=== PATIENT | male | born 1990 | race Hispanic/Latino ===

== ENCOUNTER 2019-11-09 09:25 | Inpatient (IN) | payer MEDICAID, OTHER, SELFPAY ==
--- NOTE | 2019-11-09 10:57 | RAD ---
EXAM: Single view of the chest HISTORY: Shortness of breath COMPARISON: None FINDINGS: Single view of the chest shows a normal sized cardiomediastinal silhouette. There is no maegan dence of consolidation, mass, or pleural effusion. The bones are unremarkable IMPRESSION: No evidence of acute cardiopulmonary disease
[2019-11-09] MEDS ORDERED: Insulin Regular 100 units/100 ml in NS IVPB SCH (11:00)
[2019-11-09] MEDS ORDERED: Ondansetron PF 4 MG/2 ML Vial ONE (11:15)
[2019-11-09] MEDS ORDERED: Insulin Regular 300 UNITS/3 ML VIAL ONE (11:15)
[2019-11-09 12:04] LABS: Bilirubin Negative (Negative); Blood, Urine 2+ (Negative); Clarity Clear (Clear); Glucose, Urine (Dipstick) Greater than 1000 mg/dL (Negative); Ketone, Urine 150 mg/dL (Negative); Leukocyte Negative Leu/uL (Negative); Nitrite Negative (Negative); Protein, Urine (Dipstick) 50 mg/dL (Neg-Trace); RBC/HPF 0-3 HPF (0-3); Specific Gravity, Urine 1.017 (1.002-1.036); Squamous Epithelial 0-3 HPF (0-3); Urobilinogen Normal mg/dL (Less than 2); WBC/HPF 0-3 HPF (0-3); pH, Urine 5.5 (5.0-9.0)
[2019-11-09 12:05] LABS: Bacteria/HPF 1+ HPF (None Seen)
[2019-11-09 12:13] LABS: ALT (SGPT) 90 U/L (8-55); AST (SGOT) 29 U/L (5-34); Albumin 4.6 g/dL (3.5-5.0); Alkaline Phosphatase 187 U/L (40-110); BUN (Urea Nitrogen) 22 mg/dL (8.9-20.6); Bilirubin, Total 0.7 mg/dL (0.2-1.2); Calc. Creatinine Clearance 0 mL/min (70-130); Calcium 9.3 mg/dL (7.8-10.44); Carbon Dioxide Less than 8 mmol/L (22-29); Chloride 97 mmol/L (98-107); Estimated GFR-MDRD 52; Globulin 3.3 g/dL (2.4-3.5); Glucose 660 mg/dL (70-105); Magnesium 2.6 mg/dL (1.6-2.6); Potassium 3.7 mmol/L (3.5-5.1); Protein, Total 7.9 g/dL (6.0-8.3); Sodium 124 mmol/L (136-145)
[2019-11-09] MEDS ORDERED: Sodium Chloride 0.9% 1,000 ML IV PRN ×4 (12:16)
[2019-11-09] MEDS ORDERED: Dextrose 5 %-0.45 % NaCl 1,000 ML IV PRN (12:16)
[2019-11-09] MEDS ORDERED: Ondansetron ODT 4 MG TAB PO PRN (12:16)
[2019-11-09] MEDS ORDERED: NS 0.9% w/ 20 MEQ KCL 1,000 ML IV PRN ×2 (12:16)
[2019-11-09] MEDS ORDERED: Electrolyte Replacement Protoc 1 EACH EACH IVPB PRN (12:16)
[2019-11-09] MEDS ORDERED: Ondansetron PF 4 MG/2 ML Vial IVP PRN (12:16)
[2019-11-09 12:17] LABS: Troponin I 0.014 ng/mL (< 0.028)
--- NOTE | 2019-11-09 12:29 | PDOC.FPRHP ---
- History of Present Illness Chief Complaint: Difficulty breathing, N/V History of Present Illness: Mr. Jordan is a 28 yo male with no significant past medical history who presents to the ED with complaints of difficulty breathing and N/V. Pt reports that he has had polyuria and polydipsia for several weeks. He was recently diagnosed with DM on and was prescribed metformin. Last night he began experiencing N/V and reports ~15 episodes of vomiting, denies blood. This morning he began having difficulty breathing which prompted him to come to the hospital. Denies fever, cough, chest pain. ED Course: Labs obtained in ED. DKA protocol started. Given Insulin IV Push, Zofran, and fluids. Started on Insulin drip. - Allergies/Adverse Reactions Allergies Allergy/AdvReac Type Severity Reaction Status Date / Time No Known Allergies Allergy Unverified 11/09/19 11:00 - History PMHx: possible hx of H. Pylori PSHx: none FHx: DM in multiple family members, unsure if type I vs. Type II Social: denies tobacco, alcohol, drugs. with one child and another on the way. Manual labor job - Review of Systems General: reports: weight/appetite/sleep changes, fatigue. denies: fever/chills , night sweats Eyes: denies: eye pain, vision changes ENT: denies: nasal congestion, rhinorrhea Respiratory: reports: shortness of breath. denies: cough, congestion Cardiovascular: denies: chest pain, edema Gastrointestinal: reports: nausea, vomiting, abdominal pain. denies: diarrhea, constipation Genitourinary: reports: polyuria. denies: dysuria Skin: denies: rashes, lesions Musculoskeletal: denies: pain, swelling Neurological: reports: weakness. denies: syncope Psychological: denies: anxiety, depression - Vital signs BP: [135/85] HR: [97] RR: [28] Tmax: [97.8] Pox: [100]% on [RA] Wt: [78 kg] - Physical Exam Constitutional: awake, alert and oriented HEENT: normocephalic and atraumatic, PERRLA -HEENT: Dry mucous membranes Neck: supple, FROM Heart: normal S1/S2, no murmurs/rubs/gallops Lungs: CTAB, no rales/rhonchi, no wheezing -Lungs: Kussmaul breathing Abdomen: soft, non-tender, bowel sounds present Musculoskeletal: normal structure, normal tone, ROM grossly normal Neurological: no focal deficit, normal sensation Skin: no rash/lesions Heme/Lymphatic: no unusual bruising or bleeding, no purpura, no petechia Psychiatric: normal mood and affect, good judgment and insight FMR H&P: Results - Labs Result Diagrams: 11/09/19 10:08 11/09/19 15:40 Lab results: Sodium 124 mmol/L (136-145) L 11/09/19 10:08 Potassium 3.7 mmol/L (3.5-5.1) 11/09/19 10:08 Chloride 97 mmol/L (98-107) L 11/09/19 10:08 Carbon Dioxide Less than 8 mmol/L (22-29) L* 11/09/19 10:08 BUN 22 mg/dL (8.9-20.6) H 11/09/19 10:08 Creatinine 1.58 mg/dL (0.7-1.3) H 11/09/19 10:08 Glucose 660 mg/dL (70-105) H* 11/09/19 10:08 Lactic Acid 3.1 mmol/L (0.5-2.2) H 11/09/19 10:08 Calcium 9.3 mg/dL (7.8-10.44) 11/09/19 10:08 Total Bilirubin 0.7 mg/dL (0.2-1.2) 11/09/19 10:08 AST 29 U/L (5-34) 11/09/19 10:08 ALT 90 U/L (8-55) H 11/09/19 10:08 Alkaline Phosphatase 187 U/L (40-110) H 11/09/19 10:08 Serum Total Protein 7.9 g/dL (6.0-8.3) 11/09/19 10:08 Albumin 4.6 g/dL (3.5-5.0) 11/09/19 10:08 Urine Ketones 150 mg/dL (Negative) A 11/09/19 11:30 Urine Blood 2+ (Negative) A 11/09/19 11:30 Urine Nitrite Negative (Negative) 11/09/19 11:30 Ur Leukocyte Esterase Negative Prashant/uL (Negative) 11/09/19 11:30 Urine RBC 0-3 HPF (0-3) 11/09/19 11:30 Urine WBC 0-3 HPF (0-3) 11/09/19 11:30 Ur Squamous Epith Cells 0-3 HPF (0-3) 11/09/19 11:30 Urine Bacteria 1+ HPF (None Seen) A 11/09/19 11:30 - Radiology Interpretation Chest x-ray Status: image reviewed by me, report reviewed by me Additional comment: No evidence of acute cardiopulmonary disease FMR H&P: A/P - Problem List (1) DKA (diabetic ketoacidoses) Current Visit: Yes Status: Acute Priority: High Code(s): E11.10 - TYPE 2 DIABETES MELLITUS WITH KETOACIDOSIS WITHOUT COMA - Plan 28 yo male with no significant PMH admitted to IMCU for DKA. DKA -glucose: 660 upon arrival -anion gap > 19; unable to calculate actual anion gap as bicarb was just said to be <8 -DKA protocol in place -q4hr BMPx3 -q1hr glucose -NPO Hypokalemia -3.7 > 2.7 -given 40 mEq PO KCl -continue to monitor and follow DKA protocol Hyponatremia -due to hyperglycemia -corrected Na of 133 -will monitor Leukocytosis -WBC: 23.3 -likely 2/2 to DKA -will continue to monitor Dispo: admit to IMCU for DKA protocol Code: Full PPx: Lovenox Diet: NPO with ice chips and sips of water with meds Fluid: per protocol PCP: Delisa Lawrence FMR H&P: Upper Level - Plan Date/Time: 11/09/19 1229 IAdelfo DO, have evaluated this patient and agree with findings/plan as outlined by electrical intern resident. Pertinent changes/additions are listed here. This is a 28 yo male with no pmh who presents to the ER with a cc of SOB. He states this has been ongoing since a week ago. At that time he was seen by his PCP and was diagnosed with diabetes. He was started on metformin. Since then, he has been having worsening SOB, weakness, and some fatigue. He reports polydypsia, polyphagia, and polyuria. He feels like he cannot keep up with his fluids. He denies any fevers, chills, but does report some nausea and non- bloody vomiting. He reports a family history of DM. He denies current alcohol, tobacco, or drug use. In the ER, he has received 7.8 Units of IV insulin, 2L NS , Zofran 4mg, and was started on a 7.8unit/hr insulin drip Objective: Vitals: BP 135/85, HR 97, RR 28, Temp 97.8, SpO2 100 on ra, Wt. 78 kg General: Mild acute distress HEENT: dry mmm, AT/NC Cardio: tachycardic, regular rate, no murmurs Respiratory: CTAB, no adventitious sounds, Kussmal breathing Abdomen: Soft, non-tender, BS+ Extremities: No edema, pulses present A/P DKA with metabolic gap acidosis -Admit to IMCU -Initiate DKA protocol to replace fluids, potassium, and correct anion gap -S/P 7.8u regular insulin, started on insulin drip -S/P 2L NS in the ER -EKG shows no arrhythmia Hypokalemia -Replacing with PO and IV -Mag level normal -Will monitor Psuodhypernatremia -Corrects to 133 based on glucose Leukocytosis -WBC 23, likely 2/2 stress reaction, will monitor. No sign of infection or fever at this time. Code: Full Prophylaxis: lovenox Family: None at bedside Diet: NPO Fluids: Per DKA protocol Drips: Insulin drip, currently held due to potassium Disposition: DC in 2-3 days PCP: Delisa moser Addendum - Attending - Attending Attestation Date/Time: 11/09/19 1230 I personally evaluated the patient and discussed the management with Dr. Al/Tomas. I agree with the History, Examination, Assessment and Plan documented above with any addition or exceptions noted below. Patient here with worsening malaise associated with polyuria and polydipsia and weight loss. Has recent diagnosis of DM and was started on Metformin. Reports difficulty breathing. On exam, has obvious Kussmaul breathing. Labs show profound acidosis with ketone production and hyperglycemia. Patient will be admitted for DKA. Will check C peptide to clarify subtype. Insulin, IVF, Electrolyte replacement. Check ABG due to his increased respiratory drive to ensure he is not fatiguing. Admit to IMCU.
[2019-11-09] MEDS ORDERED: HUMULIN R 100 UNITS in Sodium Chloride 0.9% 100 ML IVPB SCH (12:30)
[2019-11-09] MEDS ORDERED: NS 0.9% w/ 20 MEQ KCL 1,000 ML IV SCH (12:30)
[2019-11-09 12:49] LABS: Hemoglobin 17.3 g/dL (14.0-18.0); Red Blood Cell (RBC) Count 6.23 mill/uL (4.70-6.10); White Blood Cell (WBC) Count 23.3 thou/uL (4.8-10.8)
[2019-11-09 12:50] LABS: Band 12 % (5-11); Lymphocytes 6 % (21-51); MDiff Complete? YES; Manual Diff?? YES; Mean Corpuscular HGB CONC 34.3 g/dL (32.0-36.0); Mean Corpuscular Hemoglobin 27.8 pg (27.0-31.0); Mean Corpuscular Volume 80.9 fL (78.0-98.0); Mean Platelet Volume 9.3 fL (7.4-10.4); Monocytes 7 % (0-10); Neutrophil 87 % (42-75); Platelet Count 413 thou/uL (130-400); RBC Distribution Width 13.7 % (11.5-14.5)
[2019-11-09 12:51] LABS: Platelet Morphology Comment Appears Adequate; RBC Morphology Normal
[2019-11-09 13:05] LABS: CK (CPK) 110 U/L (30-200)
[2019-11-09 13:25] LABS: BUN (Urea Nitrogen) 22 mg/dL (8.9-20.6); Calc. Creatinine Clearance 0 mL/min (70-130); Calcium 8.8 mg/dL (7.8-10.44); Chloride 106 mmol/L (98-107); Estimated GFR-MDRD 63; Glucose 448 mg/dL (70-105); Sodium 130 mmol/L (136-145)
[2019-11-09 13:29] LABS: Carbon Dioxide Less than 8 mmol/L (22-29); Potassium 2.7 mmol/L (3.5-5.1)
[2019-11-09] MEDS ORDERED: Potassium Chloride 20 MEQ TAB PO SCH ×3 (13:45→21:00)
[2019-11-09] MEDS ORDERED: Potassium Chloride 20 MEQ TAB ONE ×2 (14:03→17:16)
[2019-11-09 15:24] LABS: Lactic Acid 3.5 mmol/L (0.5-2.2)
[2019-11-09 16:14] LABS: BUN (Urea Nitrogen) 24 mg/dL (8.9-20.6); Calc. Creatinine Clearance 0 mL/min (70-130); Calcium 9.2 mg/dL (7.8-10.44); Chloride 107 mmol/L (98-107); Estimated GFR-MDRD 72; Glucose 209 mg/dL (70-105); Sodium 131 mmol/L (136-145)
[2019-11-09] MEDS ORDERED: Potassium Chloride 20 MEQ in Premix Bag 1 BAG IVPB SCH (16:15)
[2019-11-09] MEDS ORDERED: Potassium Chloride 20 MEQ/100 ML PREMIX BAG IVPB SCH (16:15)
[2019-11-09 16:16] LABS: Carbon Dioxide Less than 8 mmol/L (22-29); Potassium 1.9 mmol/L (3.5-5.1)
[2019-11-09 16:20] LABS: Actual Bicarbonate (HCO3a) 2.8 mEq/L (22-28); Analyzer IN Cardio ER; Base Excess (BEa) -27.8 mEq/L (-2.0 to +3.0); Calcium, Ionized (arterial) 1.48 mmol/L (1.12-1.30); Carboxyhemoglobin (COHb) 0.3 gm% (0.0-3.0); O2 Tension (PaO2), arterial 139.5 mmHg (80.0-100.0); Potassium - ABG Lab 1.65 mmol/L (3.70-5.30)
[2019-11-09 16:24] LABS: CO2 Tension 13.2 mmHg (35.0-45.0); Puncture Site RRA; pH, Arterial 6.95 (7.35-7.45)
[2019-11-09] MEDS ORDERED: Sodium Bicarb 50 MEQ/50 ML VIAL ONE (16:25)
[2019-11-09] MEDS ORDERED: Potassium Chloride 40 MEQ in Sodium Chloride 0.9% 250 ML 250 ML IVPB SCH (16:30)
[2019-11-09] MEDS ORDERED: NS 0.9% w/ 40 MEQ KCL 1,000 ML IV SCH (16:45)
--- NOTE | 2019-11-09 16:59 | RAD ---
RADIOGRAPH CHEST 1 VIEW: DATE: 11/09/2019 TIME: 4:50 PM HISTORY: Status post central line placement in 28-year-old male COMPARISON: 11/09/2019 9:54 AM FINDINGS: New central vascular catheter descending from right neck, with distal tip overlying SVC/right atrial junction. New ill-defined region of mild haziness at right lower lung zone. No cardiomegaly. The lateral costophrenic angles are sharp. No pneumothorax. IMPRESSION: 1) status post right internal jugular central venous catheter insertion into the superior vena cava/r ight atrial junction. 2) faint new mild pulmonary density at right lung base: Mild atelectasis versus viral pneumonia. 3) recommend follow-up
[2019-11-09] MEDS ORDERED: Piperacillin/Tazobactam 4.5 GM VIAL ONE (17:25)
[2019-11-09] MEDS ORDERED: Pantoprazole 40 MG VIAL IVP SCH (17:30)
[2019-11-09 17:55] LABS: BUN (Urea Nitrogen) 25 mg/dL (8.9-20.6); Calc. Creatinine Clearance 0 mL/min (70-130); Calcium 8.1 mg/dL (7.8-10.44); Chloride 113 mmol/L (98-107); Estimated GFR-MDRD 84; Glucose 150 mg/dL (70-105); Sodium 134 mmol/L (136-145)
[2019-11-09] MEDS ORDERED: Magnesium 2 GM/50 ML BAG (IN WATER) ONE (18:00)
[2019-11-09 18:01] LABS: Carbon Dioxide Less than 8 mmol/L (22-29); Potassium 1.9 mmol/L (3.5-5.1)
[2019-11-09 18:23] LABS: Actual Bicarbonate (HCO3a) 4.6 mEq/L (22-28); Analyzer IN Cardio ER; Base Excess (BEa) -25.7 mEq/L (-2.0 to +3.0); Calcium, Ionized (arterial) 1.35 mmol/L (1.12-1.30); Carboxyhemoglobin (COHb) 0.3 gm% (0.0-3.0); Hemoglobin (Hb) 14.4 g/dL (14.0-18.0); O2 Tension (PaO2), arterial 86.7 mmHg (80.0-100.0)
[2019-11-09 18:29] LABS: CO2 Tension 20.1 mmHg (35.0-45.0); pH, Arterial 6.98 (7.35-7.45)
[2019-11-09 18:30] LABS: ALV-art Gradient 37.905 (0-20); Puncture Site R RADIAL
[2019-11-09] MEDS ORDERED: Sodium Bicarbonate 150 MEQ in Sterile Water Injection 1,000 ML IV SCH (18:30)
--- NOTE | 2019-11-09 19:44 | PRG ---
DATE OF SERVICE: 11/09/2019 SUBJECTIVE: This is a 28-year-old male, who presented earlier today in DKA to the ER. He was initially started on DKA protocol including insulin, regular glucose checks, and BMPs. It was found that his potassium initially was 3.7 and subsequent potassium was 2.9 and 1.9. At this point, insulin drip was stopped and potassium supplementation, both IV and oral was initiated. During this time, an ABG was collected and pH was found to be 6.9, bicarb of 2.8, pCO2 of 13, O2 of 136. We elected to place a central line at this time for increased potassium supplementation via IV. At the time of this note, the patient received 80 mEq of oral potassium, 20 mEq of IV potassium and is receiving 20 mEq/hour of IV potassium in the central line. His chest x-ray reveals no pneumothorax, and there were bilateral breath sounds, status post central line. Currently, our main concern is his acidosis, followed closely by his hypokalemia. There is a repeat ABG coming back at this time to check the progress. The patient will be placed on a bicarb drip as well as receive 4.5 g of Zosyn for concern of bacterial infection. As of now, respiratory rate is 33 times a minute, pulse is 100 beats per minute, blood pressure is 103/65. He is still oriented, although lethargic. He awakes to voice. It will be crucial to start back his insulin as soon as we can to help correct the acidosis. Job ID: [id number] [facility]
[2019-11-09 19:46] LABS: ALT (SGPT) 50 U/L (8-55); AST (SGOT) 19 U/L (5-34); Albumin 2.8 g/dL (3.5-5.0); Alkaline Phosphatase 105 U/L (40-110); Anion Gap 15 mmol/L (10-20); BUN (Urea Nitrogen) 24 mg/dL (8.9-20.6); Bilirubin, Total 0.6 mg/dL (0.2-1.2); Calc. Creatinine Clearance 136 mL/min (70-130); Calcium 7.4 mg/dL (7.8-10.44); Carbon Dioxide 10 mmol/L (22-29); Chloride 110 mmol/L (98-107); Estimated GFR-MDRD Greater than 90; Globulin 1.7 g/dL (2.4-3.5); Glucose 158 mg/dL (70-105); Protein, Total 4.5 g/dL (6.0-8.3); Sodium 133 mmol/L (136-145)
[2019-11-09 19:49] LABS: Potassium 2.1 mmol/L (3.5-5.1)
[2019-11-09] MEDS: D5 1/2 NS w/20 mEq KCL 1,000 ML IV PRN ×2 (19:56→23:05)
[2019-11-09 21:02] LABS: Anion Gap 16 mmol/L (10-20); BUN (Urea Nitrogen) 23 mg/dL (8.9-20.6); Calc. Creatinine Clearance 122 mL/min (70-130); Calcium 7.6 mg/dL (7.8-10.44); Carbon Dioxide 10 mmol/L (22-29); Chloride 109 mmol/L (98-107); Estimated GFR-MDRD 83; Glucose 218 mg/dL (70-105); Sodium 133 mmol/L (136-145)
[2019-11-09 22:47] LABS: Actual Bicarbonate (HCO3a) 9.3 mEq/L (22-28); Base Excess (BEa) -18.1 mEq/L (-2.0 to +3.0); CO2 Tension 27.9 mmHg (35.0-45.0); Calcium, Ionized (arterial) 1.29 mmol/L (1.12-1.30); Carboxyhemoglobin (COHb) 0.3 gm% (0.0-3.0); O2 Tension (PaO2), arterial 76.3 mmHg (80.0-100.0); Potassium - ABG Lab 2.08 mmol/L (3.70-5.30)
[2019-11-09 22:49] LABS: pH, Arterial 7.14 (7.35-7.45)
[2019-11-09 22:50] LABS: ALV-art Gradient 88.465 (0-20); Puncture Site RR
--- NOTE | 2019-11-09 23:04 | PDOC.BPN ---
- Brief Progress Note I have been relatively continuously checking on Mr. Jordan after Dr. Marin was concerned by his respiratory status. In the ER I discussed with Dr. Simpson and he felt, similar to me, that we should avoid intubation if at all possible. The patient was easily rousable with mild c/o dyspnea. His lungs were clear. Concerning his DKA the insulin gtt was held and is receiving 20 meq/hr of KCl, which I am told is the maximum allowed here. I have added 40 mEq of PO as well as he was tolerating ice chips without difficulty. Upon arrival to the unit the insulin gtt had been restarted, and again it must be noted Dr. Cohen recommended continued treatment with the gtt despite the K. As his K is uptrending despite the insulin gtt and he has had no arrhythmias and has been improving on serial exam we will continue with frequent BMP's and blood gases, especially in light of what was felt to be impending respiratory failure. We have attempted to contact Dr. Cohen twice with no answer.
[2019-11-10 01:11] LABS: Anion Gap 13 mmol/L (10-20); BUN (Urea Nitrogen) 21 mg/dL (8.9-20.6); Calc. Creatinine Clearance 114 mL/min (70-130); Carbon Dioxide 12 mmol/L (22-29); Chloride 110 mmol/L (98-107); Estimated GFR-MDRD 77; Glucose 270 mg/dL (70-105); Sodium 133 mmol/L (136-145)
[2019-11-10 01:17] LABS: Potassium 1.7 mmol/L (3.5-5.1)
[2019-11-10] MEDS ORDERED: Potassium Chloride 20 MEQ in Premix Bag 1 BAG IVPB SCH ×2 (01:30→03:45)
[2019-11-10] MEDS ORDERED: Potassium Chloride 20 MEQ TAB PO SCH ×4 (01:30→23:15)
--- NOTE | 2019-11-10 02:13 | PDOC.BPN ---
- Brief Progress Note Patient continues to be checked on frequently due to respiratory status and low k. Concerning his DKA the insulin gtt has now been stopped - the anion gap is now 11. The patient continues to have low K, suspect from insulin. Will stop D5 and start LR. Will continue 20mEq IV K and give 40mEq oral as well. Will recheck BMP in 4 hrs. Will continue glucose checks q2hr and will space out to q4hr if possible. Will get an ABG if any worsening of his status. Attempting to contact Cohen earlier in the night with no answer. No arrhythmias have been noted. Patient improving on serial exams. Responds normally to questions. States breathing is improved from before. Still breathing at 27 RR. Will continue to monitor patient closely.
[2019-11-10] MEDS ORDERED: Lactated Ringer's 1,000 ML IV SCH ×4 (02:15→19:00)
[2019-11-10 03:15] LABS: Anion Gap 10 mmol/L (10-20); BUN (Urea Nitrogen) 21 mg/dL (8.9-20.6); Calc. Creatinine Clearance 113 mL/min (70-130); Carbon Dioxide 14 mmol/L (22-29); Chloride 110 mmol/L (98-107); Estimated GFR-MDRD 76; Glucose 289 mg/dL (70-105); Sodium 132 mmol/L (136-145)
[2019-11-10 03:18] LABS: Potassium 2.4 mmol/L (3.5-5.1)
[2019-11-10] MEDS: Lactated Ringer's 1,000 ML IV SCH ×2 (03:45→08:39)
--- NOTE | 2019-11-10 06:04 | PDOC.FM ---
- Subjective Subjective: Pt states he did fair overnight. He states his breathing is somewhat improved. Nursing reports NAEO. - Objective MAR Reviewed: Yes Vital Signs & Weight: Vital Signs (12 hours) Temp Pulse Resp BP Pulse Ox 11/10/19 03:30 100 11/10/19 02:00 98.0 F 11/10/19 00:26 100 11/09/19 20:00 100 11/09/19 19:00 96.1 F L 99 34 H 104/65 100 Weight Weight 83.9 kg Most Recent Monitor Data Heart Rate from ECG 104 NIBP 116/52 NIBP BP-Mean 73 Respiration from ECG 27 SpO2 98 I&O: 11/08/19 11/09/19 11/10/19 06:59 06:59 06:59 Intake Total 3388.8 Output Total 3425 Balance -36.2 Result Diagrams: 11/10/19 06:27 11/10/19 10:10 Phys Exam - Physical Examination Mild distress HEENT: moist MMs Respiratory: no wheezing, clear to auscultation bilateral Cardiovascular: no significant murmur Tachycardic, regular rate Gastrointestinal: soft, no distention, positive bowel sounds Musculoskeletal: no edema, pulses present Neurological: moves all 4 limbs Psychiatric: A&O x 3 Skin: cap refill <2 seconds Dx/Plan (1) DKA (diabetic ketoacidoses) Code(s): E11.10 - TYPE 2 DIABETES MELLITUS WITH KETOACIDOSIS WITHOUT COMA Status: Acute - Plan Plan: This is a 28 yo male with no significant pmh currently here for DKA DKA -Anion amber is closed 8, bicarb of 14, however repeat shows a potassium of 2.8, bicarb of 9, and anion gap of 13 -Pt is off of insulin drip, pending repeat ABG and potassium to start low dose of long acting insulin vs continuing drip -Still NPO -Pt will need finish photographer consult today Respiratory alkalosis 2/2 metabolic acidosis -Per Winter's formula, he is not completely compensated by respirations Hypokalemia, severe -Pt is receiving 20meq/hr of potassium IV, he has become nauseated with PO potassium -Last check was 2.4, pending ABG check -Will continue replacing, s/p 2g of mag in the ER -Central line placed Leukocytosis -Likely stress reaction, pending CBC, receiving zosyn -Pending COVID swab Pseudohyponatremia -Corrects to 132 Addendum - Attending - Attending Attestation Date/Time: 11/10/19 1202 I personally evaluated the patient and discussed the management with Dr. Marin. I agree with the History, Examination, Assessment and Plan documented above with any addition or exceptions noted below. Patient continues in DKA. Gap increased after bicarb drip stopped, anticipate due to continued acid production. Back on insulin drip, aggressive K replacement.
[2019-11-10] MEDS: Piperacillin/Tazobactam 3.375 GM in Sodium Chloride 0.9% 100 ML IVPB SCH ×4 (06:17→23:14)
[2019-11-10 06:42] LABS: Hemoglobin 14.3 g/dL (14.0-18.0); Mean Corpuscular Hemoglobin 28.5 pg (27.0-31.0); Mean Corpuscular Volume 79.4 fL (78.0-98.0); Mean Platelet Volume 8.8 fL (7.4-10.4); Platelet Count 235 thou/uL (130-400); RBC Distribution Width 13.6 % (11.5-14.5); Red Blood Cell (RBC) Count 5.02 mill/uL (4.70-6.10); White Blood Cell (WBC) Count 9.9 thou/uL (4.8-10.8)
[2019-11-10 06:58] LABS: Anion Gap 16 mmol/L (10-20); BUN (Urea Nitrogen) 21 mg/dL (8.9-20.6); Calc. Creatinine Clearance 107 mL/min (70-130); Calcium 8.4 mg/dL (7.8-10.44); Chloride 111 mmol/L (98-107); Estimated GFR-MDRD 71; Glucose 318 mg/dL (70-105); Sodium 133 mmol/L (136-145)
[2019-11-10 06:59] LABS: Magnesium 1.9 mg/dL (1.6-2.6)
[2019-11-10 07:10] LABS: Carbon Dioxide 9 mmol/L (22-29); Potassium 2.8 mmol/L (3.5-5.1)
[2019-11-10 07:11] LABS: Phosphorus Less than 1.0 mg/dL (2.3-4.7)
[2019-11-10 07:23] LABS: Band 30 % (5-11); Lymphocytes 7 % (21-51); MDiff Complete? YES; Monocytes 11 % (0-10); Neutrophil 52 % (42-75); Platelet Morphology Comment Appears Adequate; RBC Morphology Normal
[2019-11-10] MEDS ORDERED: Magnesium 2 GM/50 ML 2 GM in Premix Bag 1 BAG IVPB SCH (07:30)
[2019-11-10] MEDS: Pantoprazole 40 MG VIAL IVP SCH (07:33)
[2019-11-10] MEDS: Enoxaparin Sodium 40 MG/0.4 ML SYRINGE SC SCH (07:34)
--- NOTE | 2019-11-10 07:56 | OP ---
DATE OF PROCEDURE: 11/09/2019 PROCEDURE PERFORMED: Internal jugular central line placement. INDICATION: Hypokalemia. PROCEDURE MILANESE KNITTING MACHINE OPERATOR: Dr. Adelfo Marin. ATTENDING: Dr. Mika Nolan, in attendance. CONSENT: Procedure was performed emergently and permission was given verbally due to the emergent nature. PROCEDURE SUMMARY: [facility] insertion line practices were followed starting with washing my hands prior to starting sterile technique. Time-out was performed. My hands were washed immediately prior to the procedure. I wore a surgical cap, mask with eye protection, full gown, sterile gloves throughout the procedure. The patient was placed in Trendelenburg position. The right chest region was prepped using chlorhexidine scrub and draped in a sterile fashion using full drape and sterile probe cover employed. Medial and lateral heads of the sternocleidomastoid muscle were identified as was the carotid pulse. The internal jugular vein was identified using ultrasound. Anesthesia was achieved over the vein using 1% lidocaine. Using real-time out of plane guidance, the introducer needle was then inserted to the internal jugular vein under direct ultrasound visualization. Venous blood was withdrawn. The syringe was removed and guidewire was advanced into the introducer needle. The guidewire was visualized in the internal jugular vein by ultrasound. A small incision was made in the surface of skin with a scalpel and the introducer needle was exchanged for the dilator over the guidewire. After appropriate dilation was obtained, the dilator was exchanged over the wire for a tri-lumen central catheter. The wire was removed and the catheter was sutured in place at 15 cm. Sterile SorbaView shield was placed over the catheter at the insertion site. The patient tolerated the procedure without any hemodynamic compromise. At the time of procedure completion, all ports were aspirated and flushed properly. Postprocedure chest x-ray shows proper placement with no sign of pneumothorax. Estimated blood loss was 15 mL. Job ID: [id number] [facility]
[2019-11-10] MEDS ORDERED: Potassium Chloride 40 MEQ in Sodium Chloride 0.9% 250 ML 250 ML IVPB SCH (08:00)
[2019-11-10] MEDS ORDERED: HUMULIN R 100 UNITS in Sodium Chloride 0.9% 100 ML IVPB SCH ×2 (08:15→08:57)
[2019-11-10 08:19] LABS: Actual Bicarbonate (HCO3a) 8.4 mEq/L (22-28); Base Excess (BEa) -18.5 mEq/L (-2.0 to +3.0); Calcium, Ionized (arterial) 1.34 mmol/L (1.12-1.30); Carboxyhemoglobin (COHb) 0.7 gm% (0.0-3.0); O2 Tension (PaO2), arterial 82.8 mmHg (80.0-100.0); Potassium - ABG Lab 2.81 mmol/L (3.70-5.30)
[2019-11-10 08:20] LABS: ALV-art Gradient 87.215 (0-20); CO2 Tension 23.7 mmHg (35.0-45.0); Puncture Site RRA; pH, Arterial 7.17 (7.35-7.45)
[2019-11-10] MEDS ORDERED: Sodium Bicarb 50 MEQ/50 ML Abboject 8.4% SYRINGE IVP SCH (09:15)
--- NOTE | 2019-11-10 09:50 | CON ---
DATE OF CONSULTATION: HISTORY OF PRESENT ILLNESS: Fred Jordan is a 28-year-old gentleman, admitted to the hospital, type 1 diabetes and severe metabolic acidosis, hypokalemia, electrolyte imbalance. The diagnosis of diabetes was recently made. Apparently, he was started on metformin, presented with shortness of breath, polyuria, and polydipsia. PAST MEDICAL HISTORY: Diabetes and hypertension. PREVIOUS SURGERIES: Apparently none. CHRONIC MEDICATION: Recently started on metformin. ALLERGIES: NONE. REVIEW OF SYSTEMS: Otherwise, unremarkable except recent cough. PHYSICAL EXAMINATION: VITAL SIGNS: Pulse 97, blood pressure 130/80, saturations 100%, respirations 32. CHEST: No wheezing. No crackles. CARDIAC: Normal S1, S2. No gallops. ABDOMEN: Soft. LABORATORY DATA: White count 9000, 52 segs, 30 bands. X-ray shows a right-sided infiltrate. PO2 of 82, pCO2 of 23, pH 7.17, on 2 L. His potassium which was 1.7, now is 2.8. His anion gap is still 16. His bicarb is still 9. Glucose 318. His phosphorus is 1. His magnesium is 1.9. ASSESSMENT: 1. DKA, ongoing metabolic acidosis. 2. Hypokalemia. 3. Right lung pneumonia. PLAN: Agree with antibiotics. Continue aggressive fluid replacement. 1 amp of bicarb. We will follow in the ICU. He is probably going to require Levemir post discharge. Consultation note 70 minutes, 50% direct patient care. Job ID: [id number]
[2019-11-10] MEDS: Acetaminophen 325 MG TAB PO PRN (09:56)
[2019-11-10] MEDS: K-Phos Neutral 250 MG TAB PO SCH ×2 (09:57→16:11)
[2019-11-10] MEDS ORDERED: Potassium Chloride 40 MEQ in Premix Bag 1 BAG IVPB SCH (10:00)
[2019-11-10 11:06] LABS: Anion Gap 18 mmol/L (10-20); BUN (Urea Nitrogen) 21 mg/dL (8.9-20.6); Calc. Creatinine Clearance 79 mL/min (70-130); Chloride 112 mmol/L (98-107); Sodium 135 mmol/L (136-145)
[2019-11-10 11:07] LABS: Calcium 8.3 mg/dL (7.8-10.44); Estimated GFR-MDRD 65; Glucose 349 mg/dL (70-105)
[2019-11-10 11:20] LABS: Carbon Dioxide 8 mmol/L (22-29); Potassium 2.9 mmol/L (3.5-5.1)
[2019-11-10 13:08] LABS: Anion Gap 15 mmol/L (10-20); BUN (Urea Nitrogen) 19 mg/dL (8.9-20.6); Calc. Creatinine Clearance 79 mL/min (70-130); Calcium 8.2 mg/dL (7.8-10.44); Carbon Dioxide 12 mmol/L (22-29); Chloride 117 mmol/L (98-107); Estimated GFR-MDRD 64; Glucose 284 mg/dL (70-105); Sodium 142 mmol/L (136-145)
[2019-11-10 13:33] LABS: Potassium 2.3 mmol/L (3.5-5.1)
[2019-11-10] MEDS: Potassium Chloride 40 MEQ in Premix Bag 1 BAG IVPB SCH ×3 (14:14→17:11)
[2019-11-10 14:30] LABS: SARS-CoV-2 MS2 Positive; SARS-CoV-2 N Gene Negative; SARS-CoV-2 S Gene Negative; SARS-CoV-2 by NAA Not Detected (NotDetected); SARS-CoV-2 orf1ab Negative
[2019-11-10 15:04] LABS: Anion Gap 14 mmol/L (10-20); BUN (Urea Nitrogen) 19 mg/dL (8.9-20.6); Calc. Creatinine Clearance 83 mL/min (70-130); Calcium 8.6 mg/dL (7.8-10.44); Carbon Dioxide 13 mmol/L (22-29); Chloride 118 mmol/L (98-107); Estimated GFR-MDRD 68; Glucose 187 mg/dL (70-105); Sodium 143 mmol/L (136-145)
[2019-11-10 15:09] LABS: Potassium 1.9 mmol/L (3.5-5.1)
[2019-11-10 16:16] LABS: Anion Gap 11 mmol/L (10-20); BUN (Urea Nitrogen) 17 mg/dL (8.9-20.6); Calc. Creatinine Clearance 87 mL/min (70-130); Calcium 8.4 mg/dL (7.8-10.44); Carbon Dioxide 17 mmol/L (22-29); Chloride 118 mmol/L (98-107); Estimated GFR-MDRD 72; Glucose 131 mg/dL (70-105); Sodium 144 mmol/L (136-145)
[2019-11-10 16:34] LABS: Phosphorus Less than 1.0 mg/dL (2.3-4.7)
[2019-11-10] MEDS: Dextrose 5% in Water 1,000 ML IV SCH ×2 (17:20→23:16)
[2019-11-10] MEDS ORDERED: Potassium Phosphate 30 MMOL in Sodium Chloride 0.9% 250 ML 250 ML IVPB SCH (17:30)
[2019-11-10 18:55] LABS: Anion Gap 17 mmol/L (10-20); BUN (Urea Nitrogen) 16 mg/dL (8.9-20.6); Calc. Creatinine Clearance 87 mL/min (70-130); Calcium 8.1 mg/dL (7.8-10.44); Carbon Dioxide 15 mmol/L (22-29); Chloride 117 mmol/L (98-107); Estimated GFR-MDRD 72; Glucose 219 mg/dL (70-105); Sodium 146 mmol/L (136-145)
[2019-11-10 19:00] LABS: Potassium 2.7 mmol/L (3.5-5.1)
[2019-11-10 20:58] LABS: Anion Gap 15 mmol/L (10-20); BUN (Urea Nitrogen) 16 mg/dL (8.9-20.6); Calc. Creatinine Clearance 88 mL/min (70-130); Calcium 7.9 mg/dL (7.8-10.44); Carbon Dioxide 17 mmol/L (22-29); Chloride 116 mmol/L (98-107); Estimated GFR-MDRD 73; Glucose 283 mg/dL (70-105); Sodium 146 mmol/L (136-145)
[2019-11-10 21:04] LABS: Potassium 2.4 mmol/L (3.5-5.1)
[2019-11-10] MEDS ORDERED: Potassium Phosphate 30 MMOL in Sodium Chloride 0.9% 500 ML IVPB SCH (22:00)
[2019-11-10 22:25] LABS: Magnesium 2.3 mg/dL (1.6-2.6); Phosphorus 1.7 mg/dL (2.3-4.7)
[2019-11-10] MEDS ORDERED: PHOS-NAK 1 PKT PACK PO SCH (22:45)
[2019-11-11 00:32] LABS: Anion Gap 11 mmol/L (10-20); BUN (Urea Nitrogen) 14 mg/dL (8.9-20.6); Calc. Creatinine Clearance 93 mL/min (70-130); Carbon Dioxide 21 mmol/L (22-29); Chloride 116 mmol/L (98-107); Estimated GFR-MDRD 78; Glucose 265 mg/dL (70-105); Sodium 146 mmol/L (136-145)
[2019-11-11 00:40] LABS: Potassium 2.1 mmol/L (3.5-5.1)
[2019-11-11] MEDS ORDERED: Lactated Ringer's 1,000 ML IV SCH (00:56)
[2019-11-11] MEDS ORDERED: Potassium Chloride 20 MEQ TAB PO SCH (01:00)
[2019-11-11] MEDS ORDERED: Potassium Chloride 10 MEQ in Premix Bag 1 BAG IVPB SCH (01:15)
[2019-11-11] MEDS ORDERED: Potassium Phosphate 30 MMOL in Sodium Chloride 0.9% 500 ML IVPB SCH (01:17)
[2019-11-11] MEDS ORDERED: Potassium Chloride 60 MEQ in Sodium Chloride 0.9% 250 ML 250 ML IVPB SCH (02:00)
[2019-11-11] MEDS ORDERED: NPH, Human Insulin Isophane 300 UNIT/3 ML VIAL SC SCH ×4 (02:00→21:00)
[2019-11-11] MEDS ORDERED: Dextrose 5% in Water 1,000 ML IV SCH (02:45)
[2019-11-11 04:41] LABS: Anion Gap 13 mmol/L (10-20); BUN (Urea Nitrogen) 14 mg/dL (8.9-20.6); Calc. Creatinine Clearance 98 mL/min (70-130); Carbon Dioxide 21 mmol/L (22-29); Chloride 118 mmol/L (98-107); Estimated GFR-MDRD 83; Glucose 188 mg/dL (70-105); Magnesium 2.1 mg/dL (1.6-2.6); Sodium 149 mmol/L (136-145)
[2019-11-11 04:44] LABS: Potassium 2.6 mmol/L (3.5-5.1)
[2019-11-11] MEDS ORDERED: POTASSIUM CHLORIDE IV SCH (05:00)
[2019-11-11] MEDS ORDERED: LACTATED RINGER S IV SCH (05:00)
[2019-11-11] MEDS: Piperacillin/Tazobactam 3.375 GM in Sodium Chloride 0.9% 100 ML IVPB SCH ×3 (05:32→17:13)
--- NOTE | 2019-11-11 05:39 | PDOC.FM ---
- Subjective Subjective: Nursing states pt did well overnight although he did not sleep much. She states his potassium has been all over the place. - Objective MAR Reviewed: Yes Vital Signs & Weight: Vital Signs (12 hours) Temp Pulse Ox 11/11/19 04:00 98.8 F 11/11/19 00:00 98.6 F 11/10/19 20:00 98.3 F 11/10/19 18:59 100 Weight Admit Weight 83.9 kg Weight 67.3 kg Most Recent Monitor Data Heart Rate from ECG 108 NIBP 111/70 NIBP BP-Mean 83 Respiration from ECG 21 SpO2 99 I&O: 11/09/19 11/10/19 11/11/19 06:59 06:59 06:59 Intake Total 3388.8 7338.1 Output Total 3425 65119 Balance -36.2 -3171.9 Result Diagrams: 11/10/19 06:27 11/11/19 08:03 Phys Exam - Physical Examination Constitutional: NAD Sleeping HEENT: moist MMs Respiratory: no wheezing, clear to auscultation bilateral Cardiovascular: RRR, no significant murmur Gastrointestinal: soft, non-tender, no distention, positive bowel sounds Musculoskeletal: pulses present Neurological: normal sensation, moves all 4 limbs Psychiatric: A&O x 3 Skin: cap refill <2 seconds Dx/Plan (1) DKA (diabetic ketoacidoses) Code(s): E11.10 - TYPE 2 DIABETES MELLITUS WITH KETOACIDOSIS WITHOUT COMA Status: Acute - Plan Plan: This is a 28 yo male with no significant pmh currently here for DKA DKA -Anion amber is closed at 10 -Will continue fluids IV and PO -Will transition to NPH insulin -Will continue monitoring blood glucose today, has been stable so far Respiratory alkalosis 2/2 metabolic acidosis, improving -Per Winter's formula, he is not completely compensated by respirations Hypokalemia, severe -Continuing to replace with IV and PO potassium -This AM he is at 2.6, will monitor closely to stop aggressive replacement when we reach 3.5 -Pending mag and phosphate levels Leukocytosis, resolved -Likely stress reaction -Covid negative Hypernatremia, likely 2/2 2.6L free water deficit -Will work to correct today with oral hydration Addendum - Attending - Attending Attestation Date/Time: 11/11/19 9944 I personally evaluated the patient and discussed the management with Dr. Marin. I agree with the History, Examination, Assessment and Plan documented above with any addition or exceptions noted below. Patient feeling improved. Gap closed and Bicarb appropriate. Starting on long acting insulin. Recheck potassium. Monitor blood glucose closely.
[2019-11-11 06:21] LABS: Phosphorus 2.2 mg/dL (2.3-4.7)
[2019-11-11] MEDS: Acetaminophen 325 MG TAB PO PRN ×2 (07:44→16:14)
[2019-11-11] MEDS: Potassium Chloride 20 MEQ TAB PO SCH ×2 (07:44→16:14)
[2019-11-11] MEDS: K-Phos Neutral 250 MG TAB PO SCH ×2 (07:44→16:15)
[2019-11-11] MEDS: Pantoprazole 40 MG VIAL IVP SCH (07:45)
[2019-11-11] MEDS: Enoxaparin Sodium 40 MG/0.4 ML SYRINGE SC SCH (07:45)
[2019-11-11 08:45] LABS: Anion Gap 15 mmol/L (10-20); BUN (Urea Nitrogen) 12 mg/dL (8.9-20.6); Calc. Creatinine Clearance 119 mL/min (70-130); Calcium 8.2 mg/dL (7.8-10.44); Carbon Dioxide 19 mmol/L (22-29); Chloride 119 mmol/L (98-107); Estimated GFR-MDRD 84; Glucose 186 mg/dL (70-105); Potassium 4.4 mmol/L (3.5-5.1); Sodium 149 mmol/L (136-145)
[2019-11-11] MEDS ORDERED: Dextrose 50% Abboject 50 ML SYRINGE SLOW IVP PRN (09:13)
[2019-11-11] MEDS ORDERED: HumaLOG 300 UNITS/3 ML VIAL SC PRN (09:13)
[2019-11-11] MEDS: HumaLOG 300 UNITS/3 ML VIAL SC PRN ×5 (09:30→21:01)
[2019-11-11] MEDS: Sodium Chloride 0.45% 1,000 ML IV SCH ×4 (09:34→23:40)
--- NOTE | 2019-11-11 09:51 | PRG ---
DATE OF SERVICE: 11/11/2019 SUBJECTIVE: Fred Jordan is a 28-year-old [place] gentleman, awake, alert, and responsive. OBJECTIVE: VITAL SIGNS: Temperature 98, blood pressure 107/73, pulse 111, saturations 98% on room air. GENERAL: He is awake, alert, and responsive. Denies any pain or discomfort. His I's and O's have been 7718 in and 10,000 out. Large urine output. LABORATORY DATA: His bicarb is 19, now improved. Glucose 186. ASSESSMENT: Diabetic ketoacidosis, it actually imbalanced, much improved. He needs to be started on long-acting insulin. Continue slow hydration. Pulmonary/Critical Care will follow at a distance. Job ID: [id number]
[2019-11-11 11:55] LABS: Anion Gap 15 mmol/L (10-20); BUN (Urea Nitrogen) 12 mg/dL (8.9-20.6); Calc. Creatinine Clearance 117 mL/min (70-130); Calcium 8.1 mg/dL (7.8-10.44); Carbon Dioxide 21 mmol/L (22-29); Chloride 118 mmol/L (98-107); Estimated GFR-MDRD 82; Glucose 220 mg/dL (70-105); Potassium 4.9 mmol/L (3.5-5.1); Sodium 149 mmol/L (136-145)
[2019-11-11 12:45] LABS: Hemoglobin A1c 11.2 % (4.0-6.0)
[2019-11-11 15:55] LABS: Anion Gap 14 mmol/L (10-20); BUN (Urea Nitrogen) 11 mg/dL (8.9-20.6); Calc. Creatinine Clearance 114 mL/min (70-130); Calcium 8.5 mg/dL (7.8-10.44); Carbon Dioxide 22 mmol/L (22-29); Chloride 114 mmol/L (98-107); Estimated GFR-MDRD 80; Glucose 191 mg/dL (70-105); Potassium 3.8 mmol/L (3.5-5.1); Sodium 146 mmol/L (136-145)
[2019-11-12] MEDS: Piperacillin/Tazobactam 3.375 GM in Sodium Chloride 0.9% 100 ML IVPB SCH ×2 (00:02→05:15)
[2019-11-12] MEDS: Sodium Chloride 0.45% 1,000 ML IV SCH (05:16)
[2019-11-12] MEDS: HumaLOG 300 UNITS/3 ML VIAL SC PRN ×4 (05:17→20:32)
[2019-11-12 05:52] LABS: Anion Gap 12 mmol/L (10-20); BUN (Urea Nitrogen) 9 mg/dL (8.9-20.6); Calc. Creatinine Clearance 133 mL/min (70-130); Calcium 8.2 mg/dL (7.8-10.44); Carbon Dioxide 24 mmol/L (22-29); Chloride 106 mmol/L (98-107); Estimated GFR-MDRD Greater than 90; Glucose 251 mg/dL (70-105); Potassium 4.2 mmol/L (3.5-5.1); Sodium 138 mmol/L (136-145)
[2019-11-12 07:39] LABS: Magnesium 1.6 mg/dL (1.6-2.6); Phosphorus 2.9 mg/dL (2.3-4.7)
[2019-11-12] MEDS ORDERED: Magnesium 2 GM/50 ML 2 GM in Premix Bag 1 BAG IVPB SCH (08:00)
[2019-11-12] MEDS ORDERED: HumuLIN 70/30 (300 UNITS/3 ML VIAL) SC SCH (08:00)
--- NOTE | 2019-11-12 08:33 | PDOC.FM ---
- Subjective Subjective: Pt reports he is significantly better this AM. He states his breathing is improved and he denies any pain this AM - Objective MAR Reviewed: Yes Vital Signs & Weight: Vital Signs (12 hours) Temp Pulse Resp BP Pulse Ox 11/12/19 04:36 98.2 F 88 17 117/76 99 11/12/19 00:37 98.3 F 96 17 120/68 98 Weight Admit Weight 83.9 kg Weight 82.826 kg Most Recent Monitor Data Heart Rate from ECG 94 NIBP 137/82 NIBP BP-Mean 100 Respiration from ECG 16 SpO2 100 I&O: 11/11/19 11/12/19 11/13/19 06:59 06:59 06:59 Intake Total 7710.4 29065 Output Total 49359 4550 Balance -3279.6 9254 Result Diagrams: 11/10/19 06:27 11/12/19 04:59 Phys Exam - Physical Examination Constitutional: NAD HEENT: moist MMs Neck: no JVD Respiratory: no wheezing, clear to auscultation bilateral Nonlabored Cardiovascular: RRR, no significant murmur Gastrointestinal: soft, non-tender, no distention, positive bowel sounds Musculoskeletal: no edema, pulses present Neurological: moves all 4 limbs Psychiatric: A&O x 3 Skin: normal turgor, cap refill <2 seconds Dx/Plan (1) DKA (diabetic ketoacidoses) Code(s): E11.10 - TYPE 2 DIABETES MELLITUS WITH KETOACIDOSIS WITHOUT COMA Status: Acute - Plan Plan: This is a 28 yo male with no significant pmh currently here for DKA DKA, resolved DM1 -Discussed extensively the importance of taking insulin. He is self insured and we discussed the use of 70/30 for his diabetes. There are safety net maker, CM, and financial consults for this patient. I encouraged him to talk with the nurses in regards to giving himself insulin and checking his blood glucose. Respiratory alkalosis 2/2 metabolic acidosis, Resolved Hypokalemia, resolved -Continue supplementation during this hospital stay Leukocytosis, resolved -Stopping abx today Hypernatremia, resolved Hypophosphatemia, resolved Hypomagnesemia, resolved Addendum - Attending - Attending Attestation Date/Time: 11/12/19 1216 I personally evaluated the patient and discussed the management with Dr. Tomas. I agree with the History, Examination, Assessment and Plan documented above with any addition or exceptions noted below. Patient admitted for severe DKA and acidemia and profound hypokalemia in the setting of presumed new onset DM1. C-peptide low normal, islet cell antibodies pending. He is now doing well on 70/30 due to funding status. Hopeful discharge tomorrow after DM teaching and optimization of glucose control.
[2019-11-12] MEDS: Potassium Chloride 20 MEQ TAB PO SCH ×2 (08:40→17:49)
[2019-11-12] MEDS: K-Phos Neutral 250 MG TAB PO SCH (08:40)
[2019-11-12] MEDS: Enoxaparin Sodium 40 MG/0.4 ML SYRINGE SC SCH (08:46)
[2019-11-12 14:31] VITALS: BMI 30.4
[2019-11-12] MEDS: HumuLIN 70/30 (300 UNITS/3 ML VIAL) SC SCH (17:49)
--- NOTE | 2019-11-13 05:33 | PDOC.FM ---
- Subjective Subjective: Pt reports that he is feeling much better this morning. Expresses desire to go home and understanding of DM education. - Objective Vital Signs & Weight: Vital Signs (12 hours) Temp Pulse Resp BP Pulse Ox 11/12/19 19:55 98.4 F 93 17 114/73 97 11/12/19 19:50 97 Weight Admit Weight 83.9 kg Weight 82.82 kg Most Recent Monitor Data Heart Rate from ECG 94 NIBP 137/82 NIBP BP-Mean 100 Respiration from ECG 16 SpO2 100 I&O: 11/11/19 11/12/19 11/13/19 06:59 06:59 06:59 Intake Total 7710.4 62009 720 Output Total 25151 4550 Balance -3279.6 9254 720 Result Diagrams: 11/10/19 06:27 11/13/19 06:35 Phys Exam - Physical Examination Constitutional: NAD HEENT: PERRLA, moist MMs Neck: full ROM Respiratory: no wheezing, no rales, no rhonchi, clear to auscultation bilateral Cardiovascular: RRR, no significant murmur Gastrointestinal: soft, non-tender, no distention, positive bowel sounds Musculoskeletal: no edema Psychiatric: normal affect, A&O x 3 Skin: no rash Dx/Plan (1) DKA (diabetic ketoacidoses) Code(s): E11.10 - TYPE 2 DIABETES MELLITUS WITH KETOACIDOSIS WITHOUT COMA Status: Acute - Plan Plan: DKA -resolved DM1 -pt has received DM education -[facility] has supplied him with his glucometer kit, lancets, strips, a bottle of insulin 70/30, and syringe -continue to monitor glucose outpatient Respiratory alkalosis 2/2 metabolic acidosis -Resolved Hypokalemia, resolved -will continue supplementing until discharge; BMP pending Leukocytosis -resolved -antibiotics stopped on 11/11 Hypernatremia -resolved Hypophosphatemia -resolved Hypomagnesemia -resolved Dispo: Likely discharge home today; encouraged to establish care with [facility] Addendum - Attending - Attending Attestation Date/Time: 11/13/192103 I personally evaluated the patient and discussed the management with Dr. Al. I agree with the History, Examination, Assessment and Plan documented above with any addition or exceptions noted below. New onset T1DM with DKA- DKA resolved and now ready for d/c. Will need close o/ p followup for insulin titration.
[2019-11-13] MEDS: HumaLOG 300 UNITS/3 ML VIAL SC PRN ×2 (06:38→12:26)
[2019-11-13 07:25] LABS: Anion Gap 13 mmol/L (10-20); BUN (Urea Nitrogen) 8 mg/dL (8.9-20.6); Calc. Creatinine Clearance 143 mL/min (70-130); Calcium 8.8 mg/dL (7.8-10.44); Carbon Dioxide 26 mmol/L (22-29); Chloride 105 mmol/L (98-107); Estimated GFR-MDRD Greater than 90; Glucose 187 mg/dL (70-105); Potassium 4.2 mmol/L (3.5-5.1); Sodium 140 mmol/L (136-145)
[2019-11-13] MEDS: Potassium Chloride 20 MEQ TAB PO SCH (08:47)
[2019-11-13] MEDS: Enoxaparin Sodium 40 MG/0.4 ML SYRINGE SC SCH (08:48)
[2019-11-13] MEDS: HumuLIN 70/30 (300 UNITS/3 ML VIAL) SC SCH (08:48)
[2019-11-13] MEDS ORDERED: HumuLIN 70/30 (300 UNITS/3 ML VIAL) SC SCH ×2 (11:00→17:00)
[2019-11-13 14:36] VITALS: BP 122/76; TEMP 98
--- NOTE | 2019-11-14 21:10 | DIS ---
DATE OF ADMISSION: 11/09/2019 DATE OF DISCHARGE: 11/13/2019 ADMITTING ATTENDING: Ariel Hollingsworth MD DISCHARGING ATTENDING: Christi Scott MD RESIDENT: Adelfo Marin DO CONSULTS: Cristian Cohen, Critical Care and Pulmonology. PROCEDURES: 1. Central line placement in the right internal jugular vein on 11/08. 2. Chest x-ray 11/08 status post central line placement shows right internal jugular venous catheter inserted in the right superior vena cava/right atrial junction, new pulmonary density in the right lung base. Small atelectasis versus bilateral pneumonia. Chest x-ray on 11/08 at admission to the ER shows no evidence for acute cardiopulmonary disease. PRIMARY DIAGNOSES: 1. Diabetic ketoacidosis with severe metabolic anion gap acidemia. 2. Severe hypokalemia. 3. Severe hypophosphatemia. 4. Hypomagnesemia. 5. Dehydration. 6. Hyperglycemia. 7. Leukocytosis. SECONDARY DIAGNOSIS: None. DISCHARGE MEDICATION: Humulin 70/30, 25 units subcu b.i.d. with meals. BRIEF HISTORY OF PRESENT ILLNESS/HOSPITAL COURSE: A 28-year-old male, with no significant past medical history who presents to the ER with a chief complaint of difficulty breathing and nausea and vomiting. He states that he has had polyuria and polydipsia for the last several weeks. He has been diagnosed with diabetes on and was put on metformin at that time. He reports two to three episodes of vomiting. Denies blood. PERTINENT LABS ON INITIAL ER COURSE: WBC 23,000. ABG showing a bicarb of 2.8, pH is 6.95, pCO2 of 13.2, PO2 of 139.5. Initial BMP shows sodium of 124, corrected to 133; potassium of 3.7; bicarb less than 8; BUN 22; creatinine 1.58; glucose 660, lactic acid 3.1, and C-peptide 2.1. Initial phosphorus less than 1. Initial magnesium 1.9. Patient was seen in the ER and DKA protocol was initiated. Patient was receiving fluids as well as insulin. Recheck BMP showed his potassium dropped to 2.7 and then to 1.9. The insulin drip was stopped at this time. We began aggressively repleting his potassium with both IV and oral supplements. At this time, it was deemed necessary to place a central line as his potassium was not rising at appropriate rate. This line was placed and the patient was admitted to the ICU for further management. He was also found to have a low potassium level, magnesium, and low phosphorus. These each were replaced. We struggled to close his anion gap while continuing to maintain his upward trend of his potassium. On 11/11/2019, his potassium was finally 4.4 and we stopped potassium supplementation as this was likely close to equilibrium. At this point, he had received over 600 mEq of potassium IV and p.o. sources. Initial anion gap was greater than 19 due to the inability to calculate the bicarb, but this gap likely was closer to 25. His gap closed on 11/09. Overnight, patient was taken off the insulin drip. He was started on Humulin 70/30 as he was uncertain this was deemed to be the effective way to manage his diabetes outpatient. He continued to improve and reports feeling much improved at the time of discharge. He was given our contact information and encouraged to follow up with us in clinic. It was stressed multiple times by multiple different people that he will need to take his insulin or will otherwise be back in the same place. DISPOSITION: Stable. DISCHARGE INSTRUCTIONS: 1. Location: Home. 2. Diet: Diabetic. 3. Activity: As tolerated. 4. Follow up with [facility] to establish care in one week. Job ID: [id number]
--- NOTE | 2019-11-15 08:10 | PQF ---
CLINICAL DOCUMENTATION CLARIFICATION FORM: Dear : ____ __Christi Scott MD Date / Time: ____11/15/2019_ Please exercise your independent, professional judgment in responding to the clarification form. Clinical indicators are provided on the bottom of this form for your review Please check appropriate box(es) to clarify if the following diagnosis has been ruled in our ruled out: Right Lung Pneumonia [ ] Ruled in diagnosis [ ] Continue to treat [ ] Resolved [X ] Ruled out diagnosis [ ] Improving [ ] Cannot rule out diagnosis [ ] Other diagnosis [ ] Unable to determine Physician Signature: Christi Scott MD Date/Time: 11/16/19 0900am For continuity of documentation, please document condition throughout progress notes and discharge summary. Thank You. To be completed by CDI/Coding staff for physician review: w Present w Clinical Indicators - Signs / Symptoms / Labs w Results and Location in Medical Record w [ x] w Right Lung Pneumonia w Consult note, 11/09, Vicki Foster MD w [ x] w Temp:96.1L w Vital Signs, 11/08 w [ x] w WBC: 23.3H w Laboratory report, 11/08 w [ x] w Faint new mild pulmonary density at right lung base: mild atelectasis versus viral pneumonia w Chest X-ray, 11/08 w Present w Risk Factors w Results and Location in Medical Record w [ x] w Diabetic ketoacidosis w DS, 11/12, Christi Scott MD w w w w w w w w w w Present w Treatments w Results and Location in Medical Record w [ x] w Zosyn.IV w MAR, 11/09 w w w w w w w w w CDS/Collar Fuser Signature: Maggie Garrido Phone #: [phone] Date/Time:_ 11/15/2019 This is a permanent part of the Medical Record [facility]
== END 2019-11-13 13:05 | disposition home or self-care (01) | DRG 638 ==
LOC: ERS 09:25 → ERHOLD 11:49 → CCU 19:06 → T4-B 11-11 18:33
PROVIDERS: ADMIT Student in an Organized Health Care Education/Training Program; ATTEND Student in an Organized Health Care Education/Training Program
PROC: 05HM33Z Insertion of Infusion Device into Right Internal Jugular Vein, Percutaneous Approach (ICD-10-PCS; principal; 2019-11-09)
DX: E10.10 Type 1 diabetes mellitus with ketoacidosis without coma (principal); E87.1 Hypo-osmolality and hyponatremia; E87.3 Alkalosis; E87.6 Hypokalemia; E83.39 Other disorders of phosphorus metabolism; E83.42 Hypomagnesemia; E86.0 Dehydration; D72.829 Elevated white blood cell count, unspecified; Z79.4 Long term (current) use of insulin
CPT/HCPCS: 36415; 36416; 36556; 71045; 80048; 80053; 81003; 81015; 82010; 82550; 82805; 83036; 83605; 83735; 84100; 84145; 84439; 84443; 84481; 84484; 84681; 85025; 86341; 87086; 87635; 93005; 96361; 96365; 96366; 96367; 96368; 96375; 99292; A4217; C9113; J1650; J1815; J2405; J2543; J3475; J3480; J3490; J7030; J7050; J7120; U0003

== ENCOUNTER 2022-10-08 06:51 | Outpatient (CLI) | payer BC | END 2022-10-08 06:52 | disposition home or self-care (01) | LOC: BICULT 06:51 | PROVIDERS: ATTEND Student in an Organized Health Care Education/Training Program | DX: R74.8 Abnormal levels of other serum enzymes (principal); R93.2 Abnormal findings on diagnostic imaging of liver and biliary tract | CPT/HCPCS: 76705 ==